=== PATIENT | female | born 1990 | race African-American/Black ===

== ENCOUNTER 2017-09-06 16:13 | Observation (INO) ==
[2017-09-06] MEDS ORDERED: Ondansetron 4 MG/2 ML VIAL IVP ONE ×2 (17:16→19:31)
[2017-09-06] MEDS ORDERED: 0.9 % Sodium Chloride 1,000 ML IVC ONE ×2 (17:16→20:04)
[2017-09-06] MEDS ORDERED: Pantoprazole 40 MG VIAL IVP ONE (17:16)
[2017-09-06] MEDS ORDERED: *HR* Morphine 2 MG/ML SYRINGE IVP ONE (17:16)
[2017-09-06] MEDS ORDERED: GI Cocktail 40 ML EACH PO ONE (17:18)
[2017-09-06 17:32] LABS: Basophils % 0.7 %; Eosinophils % 0.7 %; Hematocrit 39.8 % (35.3-44.9); Hemoglobin 13.5 g/dL (11.5-15.4); Lymphocytes # 2.1 K/mcL (0.6-4.6); Lymphocytes % 46.6 %; Mean Corpuscular HGB Conc 33.9 g/dL (31.6-35.5); Mean Corpuscular Hemoglobin 31.5 pg (28.0-33.3); Mean Platelet Volume 9.2 fL (9.4-12.4); Monocytes # 0.3 K/mcL (0.0-1.3); Monocytes % 5.9 %; Neutrophils # 2.1 K/mcL (1.6-8.9); Platelet Count 275 K/mcL (140-400); Red Blood Count 4.28 M/mcL (3.82-4.97); Red Cell Distribution Width 14.1 % (11.5-14.5); Segmented Neutrophils % 46.1 %
[2017-09-06 17:34] LABS: Bilirubin,Urine Negative (Negative); Blood,Urine Moderate (Negative); Clarity,Urine Clear (Clear); Color,Urine Yellow (Yellow); Glucose,Urine (UA) Normal (Normal); Ketones,Urine Negative (Negative); Leukocyte Esterase,Urine Negative (Negative); Nitrite,Urine Negative (Negative); PH,Urine 6.5 pH Units (5.0-8.0); Protein,Urine Negative (Neg-Trace); Specific Gravity,Urine 1.024 (1.010-1.025); Urobilinogen,Urine Normal (Normal)
[2017-09-06 17:36] LABS: Bacteria,Urine None Seen per hpf (None-Few); Hyaline Casts,Urine None Seen per lpf (None-Few); RBC,Urine 15-30 per hpf (0-3); Squamous Epithelial Cell,Urine Many per lpf (None-Few); WBC,Urine 0-3 per hpf (0-3)
[2017-09-06 17:46] LABS: Alanine Aminotransferase 15 Units/L (0-55); Albumin 3.9 g/dL (3.5-5.0); Alkaline Phosphatase 60 Units/L (38-126); Aspartate Amino Transferase 15 Units/L (5-34); BUN/Creatinine Ratio 13 (6-26); Bilirubin,Direct 0.4 mg/dL (0.0-0.5); Bilirubin,Indirect 0.6 mg/dL (0.0-1.2); Blood Urea Nitrogen 10 mg/dL (7-20); Calcium 9.6 mg/dL (8.6-10.8); Carbon Dioxide 22 mEq/L (19-29); Chloride 104 mEq/L (98-109); Globulin 3.9 g/dL (2.4-3.5); Glucose 99 mg/dL (70-99); Lipase 15 Units/L (8-78); Osmolality,Calculated 287 (280-300); Sodium 139 mEq/L (136-145); Total Protein 7.8 g/dL (6.0-8.3); eGFR For African Americans > 60 (> 60); eGFR For Non-African Americans > 60 (> 60)
--- NOTE | 2017-09-06 18:13 | Emergency Department Note ---
Disposition Clinical Impression: Epigastric abdominal pain Disposition: Admitted As Inpatient Condition: Good Time of Disposition: 20:14 General Adult HPI - General Chief complaint: ED Abdominal Pain Stated complaint: abdominal pain Time Seen by Provider: 09/06/17 17:08 Source: patient Mode of arrival: ambulatory Limitations: no limitations Nursing Notes Reviewed: Yes Vital Signs Reviewed: Yes - History of Present Illness HPI Narrative: 27-year-old female presenting to the emergency Department chief complaint of epigastric pain. Patient states starting 2 days ago she started having epigastric pain that felt like a knot in her belly. She states it feels like something is pulling. She tried ibuprofen at home with no relief. Patient had a cholecystectomy approximately one year ago. Patient also discloses some tar colored diarrhea and vomiting. Patient states today the pain got acutely worse. Patient denies any other significant past medical history. She is not on any daily medication. Patient denies any radiation of the pain. She denies any urinary symptoms. She denies any vaginal bleeding, discharge or concern for STDs. Pain Scale: 10 - Related Data Home Medications Medication Instructions Recorded Confirmed Ibuprofen [Motrin] 600 mg PO Q6H PRN 09/06/17 09/06/17 Allergies Allergy/AdvReac Type Severity Reaction Status Date / Time No Known Allergies Allergy Verified 09/06/17 16:28 All systems ED: reviewed and negative except as stated. Constitutional: Denies: fever, chills Eyes: Reports: as per HPI ENT ED: Reports: as per HPI Cardiovascular: Denies: chest pain, palpitations, dyspnea on exertion Respiratory: Denies: cough, dyspnea Gastrointestinal: Reports: abdominal pain, nausea, vomiting, diarrhea Genitourinary: Denies: urgency, dysuria, frequency Musculoskeletal: Reports: as per HPI Integumentary: Denies: rash, abrasion Neurological: Denies: numbness, paresthesias Psychiatric: Reports: as per HPI Endocrine: Reports: as per HPI Hematological/Lymphatic: Reports: as per HPI Allergic/Immunologic: Reports: as per HPI Past Medical History - Past Medical History Attestation: Yes The following information was validated with the patient. Medical history: Reports: non-contributory Psychiatric history: Reports: no psych history BARN OPERATOR history: Reports: no BARN OPERATOR history - Social History Smoking Status: Current every day smoker Smokeless Tobacco Status: No Alcohol use: Reports: occasionally Drug use: Reports: none Physical Exam - General Limitations: no limitations General appearance: alert, in no apparent distress - Head Head exam: atraumatic, normocephalic, normal inspection - Eye Eye exam: Present: normal appearance. Absent: scleral icterus, conjunctival injection - Neck Neck exam: Present: normal inspection, full ROM. Absent: tenderness, meningismus - Chest Chest inspection: Present: normal inspection, symmetric chest wall rise. Absent : tenderness, rash - Respiratory Respiratory exam: Present: normal lung sounds bilaterally. Absent: respiratory distress, wheezes, stridor - Cardiovascular Cardiovascular exam: Present: regular rate, normal rhythm, normal heart sounds - Abdominal Exam Abdominal exam: Present: soft, tenderness, normal bowel sounds. Absent: distention, guarding, rebound, rigidity, organomegaly, Navas's sign, Rovsing's sign, tenderness at McBurney's Point Abdominal tenderness: Present: epigastrium, mild - Extremities Exam Extremities exam: Present: normal inspection, full ROM Course Course Narrative: 27-year-old female presented to the emergency department with chief complaint of epigastric pain. Patient does not show any signs of surgical abdomen at this time. We will obtain basic lab work including CBC, CMP, lipase along with a UA and urine test - Reevaluation(s) Reevaluation #1: Patient's lab work has come back within normal limits. CT of the abdomen and pelvis showed Amorphous high attenuation material along the expected course of the common bile duct (which is suboptimally visualized) may represent retained gallstones. No intrahepatic bile duct dilatation. Gallbladder surgically absent. Ultrasound may or may not help clarify. MRCP is probably the optimal imaging modality to assess for retained gallstones/choledocholithiasis. I spoke with the convalescent sitter on-call doctor Krishna who feels an ultrasound would not beam beneficial. He will like the patient admitted to perform an MRCP. I spoke with the patient who agrees with this plan. She is alert and oriented 3 in the room with stable vital signs throughout her stay. I spoke with the hospice on-call Dr. Soliz who agrees to accept the patient at this time. Vital Signs Temperature 97.9 F 09/06/17 16:24 Pulse Rate 84 09/06/17 16:24 Respiratory Rate 18 09/06/17 16:24 Blood Pressure 143/73 09/06/17 16:24 O2 Sat by Pulse Oximetry 99 09/06/17 16:24 Temperature 98.2 F 09/06/17 23:12 Pulse Rate 68 09/06/17 23:12 Respiratory Rate 16 09/06/17 23:12 Blood Pressure 145/87 09/06/17 23:12 O2 Sat by Pulse Oximetry 99 09/06/17 23:12 Oxygen Delivery Oxygen Delivery Room Air Medical Decision Making - Lab Data Result diagrams: 09/06/17 17:23 09/06/17 17:23 Lab Results 09/06/17 09/06/17 09/06/17 Range/Units 17:23 17:23 17:23 WBC 4.6 (4.3-11.1) K/mcL RBC 4.28 (3.82-4.97) M/mcL Hgb 13.5 (11.5-15.4) g/dL Hct 39.8 (35.3-44.9) % MCV 93.0 (83.0-100.0) fL MCH 31.5 (28.0-33.3) pg MCHC 33.9 (31.6-35.5) g/dL RDW 14.1 (11.5-14.5) % Plt Count 275 (140-400) K/mcL MPV 9.2 L (9.4-12.4) fL Immature Gran % 0.0 (0-4) % Seg Neutrophils % 46.1 % Lymphocytes % 46.6 % Monocytes % 5.9 % Eosinophils % 0.7 % Basophils % 0.7 % Neutrophils # 2.1 (1.6-8.9) K/mcL Lymphocytes # 2.1 (0.6-4.6) K/mcL Monocytes # 0.3 (0.0-1.3) K/mcL Eosinophils # 0.0 (0.0-0.6) K/mcL Basophils # 0.0 (0.0-0.2) K/mcL Sodium (136-145) mEq/L Potassium (3.5-4.5) mEq/L Chloride (98-109) mEq/L Carbon Dioxide (19-29) mEq/L BUN (7-20) mg/dL Creatinine (0.57-1.11) mg/dL Est GFR ( Amer) (> 60) Est GFR (Non-Af Amer) (> 60) BUN/Creatinine Ratio (6-26) Glucose (70-99) mg/dL Calculated Osmolality (280-300) Calcium (8.6-10.8) mg/dL Total Bilirubin (0.2-1.2) mg/dL Direct Bilirubin (0.0-0.5) mg/dL Indirect Bilirubin (0.0-1.2) mg/dL AST (5-34) Units/L ALT (0-55) Units/L Alkaline Phosphatase (38-126) Units/L Troponin I (0-0.03) ng/mL Serum Total Protein (6.0-8.3) g/dL Albumin (3.5-5.0) g/dL Globulin (2.4-3.5) g/dL Albumin/Globulin Ratio (1.1-2.2) Lipase (8-78) Units/L Urine Color Yellow (Yellow) Urine Clarity Clear (Clear) Urine pH 6.5 (5.0-8.0) pH Units Ur Specific [place] 1.024 (1.010-1.025) Urine Protein Negative (Neg-Trace) mg/dL Urine Glucose (UA) Normal (Normal) mg/dL Urine Ketones Negative (Negative) mg/dL Urine Blood Moderate H (Negative) Urine Nitrite Negative (Negative) Urine Bilirubin Negative (Negative) Urine Urobilinogen Normal (Normal) mg/dL Ur Leukocyte Esterase Negative (Negative) Urine Microscopic RBC 15-30 H (0-3) per hpf Urine Microscopic WBC 0-3 (0-3) per hpf Ur Squamous Epith Cells Many H (None-Few) per lpf Urine Bacteria None Seen (None-Few) per hpf Hyaline Casts None Seen (None-Few) per lpf Ur Culture Indicated? NO (NO) Urine Test Negative (Negative) 09/06/17 09/06/17 Range/Units 17:23 17:23 WBC (4.3-11.1) K/mcL RBC (3.82-4.97) M/mcL Hgb (11.5-15.4) g/dL Hct (35.3-44.9) % MCV (83.0-100.0) fL MCH (28.0-33.3) pg MCHC (31.6-35.5) g/dL RDW (11.5-14.5) % Plt Count (140-400) K/mcL MPV (9.4-12.4) fL Immature Gran % (0-4) % Seg Neutrophils % % Lymphocytes % % Monocytes % % Eosinophils % % Basophils % % Neutrophils # (1.6-8.9) K/mcL Lymphocytes # (0.6-4.6) K/mcL Monocytes # (0.0-1.3) K/mcL Eosinophils # (0.0-0.6) K/mcL Basophils # (0.0-0.2) K/mcL Sodium 139 (136-145) mEq/L Potassium 4.0 (3.5-4.5) mEq/L Chloride 104 (98-109) mEq/L Carbon Dioxide 22 (19-29) mEq/L BUN 10 (7-20) mg/dL Creatinine 0.77 (0.57-1.11) mg/dL Est GFR ( Amer) > 60 (> 60) Est GFR (Non-Af Amer) > 60 (> 60) BUN/Creatinine Ratio 13 (6-26) Glucose 99 (70-99) mg/dL Calculated Osmolality 287 (280-300) Calcium 9.6 (8.6-10.8) mg/dL Total Bilirubin 1.0 (0.2-1.2) mg/dL Direct Bilirubin 0.4 (0.0-0.5) mg/dL Indirect Bilirubin 0.6 (0.0-1.2) mg/dL AST 15 (5-34) Units/L ALT 15 (0-55) Units/L Alkaline Phosphatase 60 (38-126) Units/L Troponin I 0.01 (0-0.03) ng/mL Serum Total Protein 7.8 (6.0-8.3) g/dL Albumin 3.9 (3.5-5.0) g/dL Globulin 3.9 H (2.4-3.5) g/dL Albumin/Globulin Ratio 1.0 L (1.1-2.2) Lipase 15 (8-78) Units/L Urine Color (Yellow) Urine Clarity (Clear) Urine pH (5.0-8.0) pH Units Ur Specific [place] (1.010-1.025) Urine Protein (Neg-Trace) mg/dL Urine Glucose (UA) (Normal) mg/dL Urine Ketones (Negative) mg/dL Urine Blood (Negative) Urine Nitrite (Negative) Urine Bilirubin (Negative) Urine Urobilinogen (Normal) mg/dL Ur Leukocyte Esterase (Negative) Urine Microscopic RBC (0-3) per hpf Urine Microscopic WBC (0-3) per hpf Ur Squamous Epith Cells (None-Few) per lpf Urine Bacteria (None-Few) per hpf Hyaline Casts (None-Few) per lpf Ur Culture Indicated? (NO) Urine Test (Negative) - EKG Data EKG #1 EKG attestation: Yes I reviewed and interpreted this EKG. EKG results narrative: Sinus rhythm with sinus arrhythmia. 73 bpm. OR interval 193, QRS 83, QTc 387. No signs of acute ST segment elevation or ischemia. No previous EKG to compare to. Attestation Statement - Attestation Attestation: I examined this patient and my medical decision-making was reviewed with the Resident Physician. I agree with the documented findings, disposition and treatment plan as described except to the extent set forth below. Findings consistent with abdominal pain. Possible choledocholithiasis. Discussed case with on-call convalescent sitter recommends admission for ERCP.
[2017-09-06] MEDS ORDERED: *HR* HYDROmorphone (PF) 1 MG/ML SYRINGE IVP ONE (19:31)
[2017-09-06] MEDS: *HR* Morphine 2 MG/ML SYRINGE IVP PRN (23:15)
[2017-09-07] MEDS ORDERED: Naloxone 0.4 MG/ML INJ IVP PRN (02:39)
[2017-09-07] MEDS ORDERED: Mag Hydrox/Al Hydrox/Simeth 30 ML UDC PO PRN (02:39)
[2017-09-07] MEDS ORDERED: Acetaminophen 325 MG TABLET PO PRN (02:39)
[2017-09-07] MEDS ORDERED: Ondansetron 4 MG/2 ML VIAL IVP PRN (02:39)
--- NOTE | 2017-09-07 02:45 | Internal Med History&Physical ---
Date of Encounter: 09/06/17 Time of Encounter: 22:00 Assessment and Plan (1) Epigastric abdominal pain Current visit: Yes Status: Acute Epigastric and right upper quadrant abdominal pain with examination showing soft belly the patient complains of tenderness. CT abdomen and pelvis findings noted. ER has already consulted GI for an ERCP. For now she will be started on IV fluid and IV pain medicine and be kept nothing by mouth. Further evaluation and treatment per GI. Considering the fact that her liver function tests are negative as well as her white count I am not sure if she has choledocholithiasis. Internal Medicine - H&P: HPI Chief complaint: Abdominal pain Admitted From: Home Plans for Post Hospital Care: Home History of present illness: Ms. Oden is a 27 year old female recently had cholecystectomy. Presented with epigastric right upper quadrant abdominal pain without any significant nausea vomiting diarrhea. She is quite vague about her description of pain but describes it in right upper quadrant. No correlation with her food. As a matter of fact she wants to eat. Also noted that as I entered the room she was fast asleep. No other complaints. CT abdomen and pelvis done in the ER showed amorphus material and presumed bile duct as actual bite is that could not be visualized neither did the notice any stones. Past Med Surg Social Fam HX - Past Medical History Medical history: non-contributory Psychiatric history: no psych history - Social History Smoking Status: Current every day smoker Smokeless Tobacco Status: No Alcohol use: occasionally Drug use: none - Family History Mother Hx Family Cardiac Disorders: Yes (HTN) Hx Family Psychosocial Disorders: Yes Internal Medicine - H&P: Meds Ibuprofen [Motrin] 600 mg PO Q6H PRN 09/06/17 [History] 3 Allergy/AdvReac Type Severity Reaction Status Date / Time No Known Allergies Allergy Verified 09/06/17 16:28 All Systems PM: A 10-system review of systems was performed and is negative for pertinent findings except as documented above in the HPI. - Constitutional Constitutional: no chills, no fever(s), no night sweats - EENT Eyes: no change in vision, no discharge, no pain, no photophobia Ears: no ear discharge, no ear pain, no tinnitus Nose, mouth and throat: no dysphagia, no nasal discharge, no neck pain, no sore throat - Cardiovascular Cardiovascular ROS IM: no chest pain, no diaphoresis, no dyspnea, no lightheadedness, no palpitations, no syncope - Respiratory Respiratory: no cough, no dyspnea, no wheezing, no excessive phlegm production - Gastrointestinal Gastrointestinal: no abdominal pain, no diarrhea, no hematemesis, no hematochezia, no melena, no nausea, no vomiting - Genitourinary Genitourinary: no change in urinary stream, no dysuria, no flank pain, no hematuria - Musculoskeletal Musculoskeletal ROS IM: no numbness, no tingling - Integumentary Integumentary IM: no rash, no unusual bruising - Neurological Neurological ROS: no confusion, no convulsions, no focal weakness, no numbness, no tingling, no tremor(s) - Hematologic/Lymphatic Hematologic/Lymphatic: no easy bruising - Constitutional Vitals: Temp Pulse Resp BP Pulse Ox 98.2 F 68 16 145/87 99 09/06/17 23:12 09/06/17 23:12 09/06/17 23:12 09/06/17 23:12 09/06/17 23:12 - Head Head exam: Present: atraumatic, normocephalic - Eye Eye exam: Present: PERRL, conjuntiva pink, sclera anicteric Pupils: Present: PERRL - Neck Neck exam general surgery: Present: supple, trachea midline. Absent: lymphadenopathy - Respiratory Respiratory exam: Present: CTAB. Absent: accessory muscle use, rales, rhonchi, wheezes - Cardiovascular Cardiovascular exam: Present: RRR, +S1, +S2. Absent: diastolic murmur, gallop, rubs, systolic murmur - GI/Abdominal GI/Abdominal exam: Present: normal bowel sounds, soft, tenderness, no peritoneal signs. Absent: distended - Extremities Exam Extremities exam: Present: warm, radial pulses palpable and symmetrical. Absent : calf tenderness, cyanotic, pedal edema - Neurological Exam Neurological exam: Present: CN II-XII intact, oriented X3, no focal deficits. Absent: pronater drift, facial droop, speech deficit - Skin Skin exam: Present: dry, intact Internal Med - H&P Results - Labs CBC & Chem 7: 09/06/17 17:23 09/06/17 17:23
[2017-09-07] MEDS: 0.9 % Sodium Chloride 1,000 ML IVC SCH ×2 (03:23→10:38)
[2017-09-07] MEDS: *HR* Morphine 2 MG/ML SYRINGE IVP PRN (07:43)
--- NOTE | 2017-09-07 10:58 | Gastroenterology Consult Note ---
<Gale Haile - Last Filed: 09/07/17 10:54> Date of Encounter: 09/07/17 Time of Encounter: 10:00 - Assessment and plan (1) Epigastric abdominal pain Current Visit: Yes Status: Acute Assessment and plan: Previous cholecystectomy. Pt has pain, nausea and vomiting. CT shows possible retained gallstones but labs are normal. Will proceed with ERCP today, monitor labs. Risks and benefits described and pt verbalizes understanding. (2) Abnormal abdominal CT scan Current Visit: Yes Status: Acute Assessment and plan: ERCP today - Time Spent With Patient Total time spent is greater than 50% in coordination of care (as documented) at patient's floor/unit and/or counseling patient: GI History of Present Illness - Data of Consult Patient: new to practice Consult date: 09/07/17 Requesting Physician: Gladis Luu CNP - Consult Narrative Reason for consult: abdominal pain/abnormal CT chest History of present illness: Ms. Oden is a 27 year old female with a previous history of cholecystectomy. She presents with 3 day history of epigastric pain radiating to the right upper quadrant. Nausea and vomiting, diarrhea and dizziness. She also reports some tarry stools but denies any bright red rectal bleeding. Pain is not related to food. She states she took ibuprofen at home with no relief of pain. She denies dysphagia, or GERD. CT abdomen and pelvis done in the ER showed amorphous high attenuation material along the expected course of the common bile duct ( which is suboptimally visualized) may represent retained gallstones. No intrahepatic bile duct dilatation. EGD/colon: denies NSAIDS: on occasion ibuprofen Anticoagulants: denies Past Med Surg Social Fam HX - Past Medical History Medical history: non-contributory Psychiatric history: no psych history - Social History Smoking Status: Current every day smoker Smokeless Tobacco Status: No Alcohol use: occasionally Drug use: none - Family History Mother Hx Family Cardiac Disorders: Yes (HTN) Hx Family Psychosocial Disorders: Yes Review of Systems: GI: as per QAWALANGIN GENERAL: denies fever or chills EYES: denies yellow discoloration ENT: denies pain with swallowing or difficulty swallowing CARDIO: denies chest pain, palpitations RESP: No Shortness of breath with exertion : denies change in color of urine NEURO: denies any weakness HEME: Denies any bruising MS: denies joint pain, joint swelling or back pain. DERM: denies rash or itching PSYCH: Denies history of anxiety or depression - Constitutional Vitals: Temp Pulse Resp BP Pulse Ox 98.2 F 69 18 115/73 98 09/07/17 08:14 09/07/17 08:14 09/07/17 08:14 09/07/17 08:14 09/07/17 08:14 Exam: CONSTITUTIONAL:~alert, no acute distress.~HEAD:~normocephalic.~EYES:~no jaundice.~NECK:~no obvious swelling.~HEART:~regular rate and rhythm, no murmurs. ~LUNGS:~bilateral good air entry.~ABDOMEN:~non distended, soft, tender epigastric area, no masses palpable, no organomegaly.~RECTAL EXAM:~Deferred.~ EXTREMITIES:~no clubbing, cyanosis or edema.~SKIN:~no stigmata of chronic liver disease.~NEUROLOGIC:~no obvious focal defect.~~~~ Results - Labs CBC & Chem 7: 09/06/17 17:23 09/06/17 17:23 Labs: Last Result Calcium 9.6 mg/dL (8.6-10.8) 09/06/17 17:23 Troponin I 0.01 ng/mL (0-0.03) 09/06/17 17:23 Entire Visit Hgb 13.5 g/dL (11.5-15.4) 09/06/17 17:23 Hct 39.8 % (35.3-44.9) 09/06/17 17:23 Total Bilirubin 1.0 mg/dL (0.2-1.2) 09/06/17 17:23 AST 15 Units/L (5-34) 09/06/17 17:23 ALT 15 Units/L (0-55) 09/06/17 17:23 Lipase 15 Units/L (8-78) 09/06/17 17:23 Consult Discharge Plan - Plan Referrals: Alana Olsen MD [Primary Care Provider] - <Marce Keller - Last Filed: 09/07/17 12:19> Date of Encounter: 09/07/17 Time of Encounter: 12:15 - Time Spent With Patient Total time spent is greater than 50% in coordination of care (as documented) at patient's floor/unit and/or counseling patient: GI History of Present Illness - Data of Consult Requesting Physician: Gladis Luu CNP - Consult Narrative History of present illness: Ms. Oden is a 27 year old female - Constitutional Vitals: Temp Pulse Resp BP Pulse Ox 98.3 F 70 18 126/84 100 09/07/17 10:57 09/07/17 10:57 09/07/17 10:57 09/07/17 10:57 09/07/17 10:57 Results - Labs CBC & Chem 7: 09/06/17 17:23 09/06/17 17:23 Labs: Last Result Calcium 9.6 mg/dL (8.6-10.8) 09/06/17 17:23 Troponin I 0.01 ng/mL (0-0.03) 09/06/17 17:23 Entire Visit Hgb 13.5 g/dL (11.5-15.4) 09/06/17 17:23 Hct 39.8 % (35.3-44.9) 09/06/17 17:23 Total Bilirubin 1.0 mg/dL (0.2-1.2) 09/06/17 17:23 AST 15 Units/L (5-34) 09/06/17 17:23 ALT 15 Units/L (0-55) 09/06/17 17:23 Lipase 15 Units/L (8-78) 09/06/17 17:23 - Attending Attestation I examined this patient and my medical decision-making was reviewed with the Resident Physician. I agree with the documented findings, disposition and treatment plan as described except to the extent set forth below. Patient with epigastric pain for the last 3 days LFTs are normal CBD is not dilated. CT scan concerning for a possible stone in the bile duct, although CBD again is not dilated. Recommendation is EGD and if negative then we will consider MRCP
[2017-09-07] MEDS ORDERED: *HR* Midazolam HCl 5 MG/5 ML VIAL IVP ONE ×2 (12:13→12:16)
[2017-09-07] MEDS ORDERED: *HR* FentaNYL (PF) 100 MCG/2 ML VIAL ONE (12:13)
[2017-09-07] MEDS ORDERED: Simethicone 40 MG/0.6 ML MLS IR ONE (12:16)
[2017-09-07] MEDS ORDERED: Tetracaine/Benzocaine/Butamben 200MG/SPRAY (100SPY/BOT) MM ONE (12:16)
[2017-09-07] MEDS ORDERED: *HR* FentaNYL (PF) 100 MCG/2 ML VIAL IVP ONE (12:16)
--- NOTE | 2017-09-07 14:14 | Discharge Summary ---
Date of Encounter: 09/07/17 Time of Encounter: 08:25 - Discharge Diagnosis (1) Epigastric abdominal pain Priority: Secondary Status: Acute Comments: Mrs. Oden reports cholecystectomy in [facility] 2 years ago. She presented to the emergency room with epigastric and right upper quadrant pain without any nausea, vomiting, diarrhea. She denies relationship between food and pain and states that she is able to eat normally, denies weight loss or missed meals. Abd is flat, sl rounded, bowel sounds present and tender to palpation in RUQ and epigastric area. Patient had EGD today. Esophagus was normal. There is localized moderate inflammation, erythema, erosions, and friability in the prepyloric region of the stomach. There were 2 nonbleeding superficial duodenal ulcers with no stigmata of bleeding, the largest being 7 mm. Biopsies were taken and patient will be sent home on a daily PPI. Patient reportedly takes a lot of NSAIDs, will discourage use. She will follow-up with primary care for continued management. Abdomen/Pelvis CT 09/06/17 17:16 IMPRESSION: Amorphous high attenuation material along the expected course of the common bile duct (which is suboptimally visualized) may represent retained gallstones. No intrahepatic bile duct dilatation. Gallbladder surgically absent. Ultrasound may or may not help clarify. MRCP is probably the optimal imaging modality to assess for retained gallstones/choledocholithiasis. Normal appendix. D/ / Thiago Robins / Thiago Robins Interpreting Provider: Thiago Robins (2) Gastritis Priority: Primary Status: Acute Comments: Per EGD. Plan as above. Qualifiers: Gastritis type: unspecified gastritis Chronicity: acute Gastritis bleeding: without bleeding Qualified Code(s): K29.00 - Acute gastritis without bleeding - Discharge Medications Prescriptions: Omeprazole [PriLOSEC] 40 mg PO DAILY@0630 #30 capsule. Home Medications: Omeprazole [PriLOSEC] 40 mg PO DAILY@0630 #30 capsule. 09/07/17 [Rx] Allergies/Adverse Reactions: 3 Allergy/AdvReac Type Severity Reaction Status Date / Time No Known Allergies Allergy Verified 09/06/17 16:28 Date of admission: 09/06/17 20:24 Primary care physician: Alana Olsen Discharging clinician: Gladis uLu Anticipated date of discharge: 09/07/17 - Patient Status Disposition: Home, Self-Care Condition: Good Functional capacity at discharge: independent ambulation Overall status at discharge: patient is back to baseline - Discharge Instructions Follow Up With: Alana Olsen MD [Primary Care Provider] - Additional Instructions: Please stop taking NSAIDs, they are contributing to your stomach problems. Take your medication as directed. Return to the ER as needed for any other problems or concerns. Return to your normal diet and activities as tolerated. - Diet and Activity Activity: increase activity as tolerated Diet: advance to your usual diet Hospital course: Ms. Oden is a 27 year old female with history of cholecystectomy 2 years ago at [facility]. Patient presents with right upper quadrant pain. She had EGD during admission that showed gastritis. Patient takes a lot of NSAIDs. Did will encourage patient to not continue those, will be discharged on PPI. Patient will follow up with primary care. Labs and vitals are stable. Patient states she feels better and is ready to go home. She is stable and appropriate for discharge. - Time Spent with Patient Total time spent providing and/or coordinating discharge services: Less than 30 minutes - Constitutional Vitals: Temp Pulse Resp BP Pulse Ox 98.7 F 92 20 109/72 98 09/07/17 12:19 09/07/17 12:35 09/07/17 12:35 09/07/17 12:35 09/07/17 12:35 General appearance: Present: A&O X 3, pleasant, no acute distress, answers questions appropriately - Head Head exam: Present: atraumatic, normal inspection, normocephalic - Eye Eye exam: Present: normal appearance, conjuntiva pink, sclera anicteric - Neck Neck exam general surgery: Present: supple, trachea midline. Absent: lymphadenopathy, tenderness - Respiratory Respiratory exam: Present: CTAB. Absent: accessory muscle use, chest wall tenderness, rales, respiratory distress, rhonchi, wheezes - Cardiovascular Cardiovascular exam: Present: RRR, +S1, +S2. Absent: diastolic murmur, gallop, rubs, systolic murmur - GI/Abdominal GI/Abdominal exam: Present: normal bowel sounds, soft, tenderness. Absent: distended, hepatomegaly - Extremities Exam Extremities exam: Present: normal capillary refill, warm, radial pulses palpable and symmetrical. Absent: calf tenderness, cyanotic, pedal edema, tenderness - Neurological Exam Neurological exam: Present: alert, oriented X3, no focal deficits. Absent: altered, facial droop, speech deficit - Skin Skin exam: Present: dry, intact, normal color, warm. Absent: rash
[2017-09-07 15:01] VITALS: BP 127/81
--- NOTE | 2017-09-08 13:47 | Electrocardiograph Report ---
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
== END 2017-09-07 16:30 | disposition home or self-care (01) ==
LOC: 3BNU 16:13 → EMEROO 16:13 → 3BNU 20:42
PROVIDERS: ADMIT Family Medicine; ATTEND Registered Nurse
PROC: ENDOEBX (2017-09-07 12:30)